=== PATIENT | female | born 1940 | race Caucasian/White ===

== ENCOUNTER 2017-08-26 11:49 | Inpatient (IN) ==
[2017-08-26] MEDS ORDERED: ONDANSETRON 4 MG/2 ML VIAL IV PRN (11:53)
[2017-08-26] MEDS: ALBUTEROL/IPRATROPIUM 3 ML NEB RESP TX SCH ×2 (15:50→20:27)
[2017-08-26] MEDS: ENOXAPARIN 40 MG/0.4 ML SYRINGE SUBCUT SCH (17:32)
[2017-08-26] MEDS: LEVOFLOXACIN INJ 500 MG in PREMIX 1 EACH IV SCH (17:32)
[2017-08-26] MEDS: SODIUM CHLORIDE 0.9% 1,000 ML IV SCH ×2 (17:33→21:25)
[2017-08-26] MEDS: methylPREDNISolone SOD SUC 125 MG/2 ML VIAL IV SCH ×3 (17:33→23:43)
[2017-08-26] MEDS: DOCUSATE SODIUM 100 MG CAPSULE PO SCH (21:25)
[2017-08-27] MEDS: ALBUTEROL/IPRATROPIUM 3 ML NEB RESP TX SCH ×4 (02:13→19:55)
[2017-08-27] MEDS: ACETAMINOPHEN 325 MG TABLET PO PRN (03:00)
[2017-08-27] MEDS: methylPREDNISolone SOD SUC 125 MG/2 ML VIAL IV SCH ×3 (06:03→21:02)
[2017-08-27 06:42] LABS: Hematocrit 30.8 VOL% (35.7-47.0); Hemoglobin 11.1 GM/DL (12.0-16.0); Immature Granulocytes % 1.6 %; Immature Granulocytes Absolute 0.03 #; Lymphocytes # 0.3 10*3/uL (1.4-4.0); Lymphocytes % 16.8 % (21.3-54.2); Mean Corpuscular Hemoglobin 32 PG (27-34); Mean Corpuscular Volume 87.7 FL (87-102); Mean Platelet Volume 9.1 FL (9.6-12.0); Monocytes % 2.1 % (1.7-12.7); Neutrophils # 1.5 10*3/uL (1.4-7.4); Neutrophils % 79.5 % (38.7-73.9); Platelet Count 281 T/CUMM (130-400); Red Blood Count 3.51 MC/CUMM (3.8-5.5); White Blood Count 1.9 T/CUMM (4-12)
[2017-08-27 07:20] LABS: Calcium 8.6 MG/DL (8.5-10.1); Osmolality,Calculated 257.2 MOS/KG (273-304); Potassium 3.8 MMOL/L (3.5-5.1)
[2017-08-27 07:34] LABS: Burr Cells Slight; Giant Platelets Few; Hypochromasia 1+; Ovalocytes Slight; Platelet Estimate Adequate
[2017-08-27] MEDS: SODIUM CHLORIDE 0.9% 1,000 ML IV SCH (07:59)
[2017-08-27] MEDS ORDERED: PANTOPRAZOLE 40 MG TABLET PO SCH (09:00)
[2017-08-27] MEDS ORDERED: ALBUTEROL 2.5 MG/3 ML NEB RESP TX PRN (10:28)
[2017-08-27 10:30] LABS: Folate 7.4 NG/ML (5.4-24.0)
[2017-08-27] MEDS: DOCUSATE SODIUM 100 MG CAPSULE PO SCH ×2 (10:58→21:03)
[2017-08-27] MEDS: POTASSIUM CHLORIDE 20 MEQ TABLET PO SCH (14:14)
[2017-08-27] MEDS: traMADol 50 MG TABLET PO PRN (21:00)
[2017-08-27] MEDS: LEVOFLOXACIN INJ 500 MG in PREMIX 1 EACH IV SCH (21:00)
[2017-08-27] MEDS: PREGABALIN 100 MG CAPSULE PO SCH (21:03)
[2017-08-27] MEDS: LISINOPRIL 10 MG TABLET PO SCH (21:03)
[2017-08-27] MEDS: MEMANTINE 10 MG TABLET PO SCH (21:03)
[2017-08-27] MEDS: DONEPEZIL 10 MG TABLET PO SCH (21:03)
[2017-08-27] MEDS: ENOXAPARIN 40 MG/0.4 ML SYRINGE SUBCUT SCH (21:03)
[2017-08-27] MEDS: OXcarbazepine 300 MG TABLET PO SCH (21:04)
[2017-08-27] MEDS: PRAVASTATIN 20 MG TABLET PO SCH (21:04)
[2017-08-27] MEDS: PANTOPRAZOLE 40 MG TABLET PO SCH (21:14)
[2017-08-28] MEDS: ALBUTEROL/IPRATROPIUM 3 ML NEB RESP TX SCH ×4 (00:34→19:25)
[2017-08-28] MEDS: SODIUM CHLORIDE 0.9% 1,000 ML IV SCH ×3 (01:52→21:02)
[2017-08-28] MEDS: ACETAMINOPHEN 325 MG TABLET PO PRN (03:20)
[2017-08-28] MEDS: methylPREDNISolone SOD SUC 125 MG/2 ML VIAL IV SCH (05:53)
[2017-08-28 06:35] LABS: Calcium 8.3 MG/DL (8.5-10.1); Osmolality,Calculated 263.7 MOS/KG (273-304); Potassium 3.6 MMOL/L (3.5-5.1)
[2017-08-28 07:32] LABS: Hematocrit 27.2 VOL% (35.7-47.0); Hemoglobin 9.6 GM/DL (12.0-16.0); Immature Granulocytes % 1.1 %; Immature Granulocytes Absolute 0.11 #; Lymphocytes # 0.8 10*3/uL (1.4-4.0); Lymphocytes % 8.1 % (21.3-54.2); Mean Corpuscular HGB Conc 35.3 GM/DL (32-36); Mean Corpuscular Hemoglobin 32 PG (27-34); Mean Corpuscular Volume 89.5 FL (87-102); Mean Platelet Volume 9.1 FL (9.6-12.0); Monocytes # 0.8 10*3/uL (0.11-0.8); Monocytes % 7.7 % (1.7-12.7); Neutrophils # 8.4 10*3/uL (1.4-7.4); Neutrophils % 83.1 % (38.7-73.9); Platelet Count 255 T/CUMM (130-400); Red Blood Count 3.04 MC/CUMM (3.8-5.5); Red Cell Distribution Width 13.5 % (9.3-17.3)
[2017-08-28 07:36] LABS: White Blood Count 10.1 T/CUMM (4-12)
[2017-08-28] MEDS ORDERED: NON-FORMULARY MEDICATION (Tiotropium Inhalation 18 MCG) INH SCH (09:00)
[2017-08-28] MEDS: TOLTERODINE LA 4 MG CAPSULE PO SCH (10:14)
[2017-08-28] MEDS: MEMANTINE 10 MG TABLET PO SCH ×2 (10:15→21:02)
[2017-08-28] MEDS: PREGABALIN 100 MG CAPSULE PO SCH ×2 (10:16→21:02)
[2017-08-28] MEDS: PANTOPRAZOLE 40 MG TABLET PO SCH ×2 (10:16→21:02)
[2017-08-28] MEDS: OXcarbazepine 300 MG TABLET PO SCH ×2 (10:17→21:03)
[2017-08-28] MEDS: POTASSIUM CHLORIDE 20 MEQ TABLET PO SCH (13:02)
[2017-08-28] MEDS: DOCUSATE SODIUM 100 MG CAPSULE PO SCH ×2 (13:04→21:02)
[2017-08-28] MEDS: RALOXIFENE 60 MG TABLET PO SCH (13:04)
[2017-08-28] MEDS: methylPREDNISolone SOD SUC 40 MG/1 ML VIAL IV SCH (18:01)
[2017-08-28] MEDS: DONEPEZIL 10 MG TABLET PO SCH (21:02)
[2017-08-28] MEDS: PRAVASTATIN 20 MG TABLET PO SCH (21:02)
[2017-08-28] MEDS: LISINOPRIL 10 MG TABLET PO SCH (21:02)
[2017-08-28] MEDS: CYANOCOBALAMIN 500 MCG TABLET PO SCH (21:03)
[2017-08-28] MEDS: ENOXAPARIN 40 MG/0.4 ML SYRINGE SUBCUT SCH (21:03)
[2017-08-28] MEDS: LEVOFLOXACIN INJ 500 MG in PREMIX 1 EACH IV SCH (21:12)
[2017-08-29] MEDS: ALBUTEROL/IPRATROPIUM 3 ML NEB RESP TX SCH ×2 (00:33→11:02)
[2017-08-29] MEDS: traMADol 50 MG TABLET PO PRN ×2 (00:51→09:09)
[2017-08-29] MEDS: SODIUM CHLORIDE 0.9% 1,000 ML IV SCH ×2 (04:58→06:30)
[2017-08-29 05:58] LABS: Basophils % 0.1 % (0.0-0.8); Hematocrit 28.5 VOL% (35.7-47.0); Hemoglobin 9.7 GM/DL (12.0-16.0); Immature Granulocytes % 1.2 %; Immature Granulocytes Absolute 0.12 #; Lymphocytes # 1.8 10*3/uL (1.4-4.0); Lymphocytes % 17.8 % (21.3-54.2); Mean Corpuscular Hemoglobin 31 PG (27-34); Mean Corpuscular Volume 91.1 FL (87-102); Mean Platelet Volume 9.1 FL (9.6-12.0); Monocytes % 10.2 % (1.7-12.7); Neutrophils # 7.2 10*3/uL (1.4-7.4); Neutrophils % 70.7 % (38.7-73.9); Platelet Count 245 T/CUMM (130-400); Red Blood Count 3.13 MC/CUMM (3.8-5.5); Red Cell Distribution Width 13.7 % (9.3-17.3); White Blood Count 10.2 T/CUMM (4-12)
[2017-08-29 06:23] LABS: Calcium 8.4 MG/DL (8.5-10.1); Osmolality,Calculated 267.1 MOS/KG (273-304); Potassium 3.8 MMOL/L (3.5-5.1)
[2017-08-29] MEDS: methylPREDNISolone SOD SUC 40 MG/1 ML VIAL IV SCH (06:30)
[2017-08-29 07:38] VITALS: BP 128/28
[2017-08-29] MEDS: CYANOCOBALAMIN 500 MCG TABLET PO SCH (09:08)
[2017-08-29] MEDS: TOLTERODINE LA 4 MG CAPSULE PO SCH (09:09)
[2017-08-29] MEDS: MEMANTINE 10 MG TABLET PO SCH (09:09)
[2017-08-29] MEDS: PREGABALIN 100 MG CAPSULE PO SCH (09:09)
[2017-08-29] MEDS: OXcarbazepine 300 MG TABLET PO SCH (09:09)
[2017-08-29] MEDS: PANTOPRAZOLE 40 MG TABLET PO SCH (09:09)
[2017-08-29] MEDS: RALOXIFENE 60 MG TABLET PO SCH (09:11)
[2017-08-29] MEDS: DOCUSATE SODIUM 100 MG CAPSULE PO SCH (09:12)
== END 2017-08-29 11:56 | disposition home or self-care (01) | DRG 191 ==
LOC: N.5E 15:04
PROVIDERS: ADMIT Internal Medicine; ATTEND Internal Medicine

== ENCOUNTER 2017-11-02 10:09 | Inpatient (IN) ==
[2017-11-02] MEDS ORDERED: SODIUM CHLORIDE 0.9% 1,000 ML IV STA (10:36)
[2017-11-02] MEDS ORDERED: fentaNYL 100 MCG/2 ML VIAL IV STA (10:36)
[2017-11-02] MEDS ORDERED: ONDANSETRON 4 MG/2 ML VIAL IV STA (10:36)
[2017-11-02 11:18] LABS: Basophils % 0.1 % (0.0-0.8); Hematocrit 35.4 VOL% (35.7-47.0); Hemoglobin 12.5 GM/DL (12.0-16.0); Immature Granulocytes % 0.8 %; Immature Granulocytes Absolute 0.13 #; Lymphocytes # 0.8 10*3/uL (1.4-4.0); Lymphocytes % 4.8 % (21.3-54.2); Mean Corpuscular HGB Conc 35.3 GM/DL (32-36); Mean Corpuscular Hemoglobin 32 PG (27-34); Mean Platelet Volume 8.8 FL (9.6-12.0); Monocytes # 1.6 10*3/uL (0.11-0.8); Monocytes % 9.2 % (1.7-12.7); Neutrophils # 14.4 10*3/uL (1.4-7.4); Neutrophils % 85.1 % (38.7-73.9); Platelet Count 356 T/CUMM (130-400); Red Blood Count 3.89 MC/CUMM (3.8-5.5); Red Cell Distribution Width 13.7 % (9.3-17.3); White Blood Count 16.9 T/CUMM (4-12)
[2017-11-02] MEDS ORDERED: ONDANSETRON 4 MG/2 ML VIAL ONE (11:19)
[2017-11-02] MEDS ORDERED: fentaNYL 100 MCG/2 ML VIAL ONE (11:20)
[2017-11-02 11:34] LABS: Albumin 3.2 G/DL (3.4-5.0); Bilirubin,Total 0.7 MG/DL (0.2-1.0); Calcium 9.5 MG/DL (8.5-10.1); Lactic Acid 1.6 MMOL/L (0.4-2.0); Osmolality,Calculated 277.7 MOS/KG (273-304); Potassium 2.6 MMOL/L (3.5-5.1); Total Protein 7.9 G/DL (6.4-8.3)
[2017-11-02 11:46] LABS: Acanthocytes Few; Band Neutrophils 1 % (0-10); Burr Cells Few; Lymphocytes 3 % (20-55); Nucleated Red Blood Cells 1 (0-5); Segmented Neutrophils 92 % (50-85); Total Cells Counted 100
[2017-11-02 11:47] LABS: Microcytosis Slight
[2017-11-02 12:08] LABS: Apearance,Urine CLEAR (Clear); Bilirubin,Urine Negative (Negative); Blood, Urine Negative (Negative); Glucose,Urine (UA) Negative (Negative); Hyaline Casts,Urine 1 /LPF (0-3); Ketones,Urine 20 mg/dL (Negative); Mucus,Urine Occasional /LPF (Occasional); Nitrite,Urine Negative (Negative); Protein,Urine 100 MG/DL; RBC,Urine <1 /HPF (0-4); Urine Color Yellow (Yellow); Urine Specific Gravity 1.017 (1.001-1.035); Urine Urobilinogen < 2.0 EU/DL (0.2-1.0); WBC,Urine <1 /HPF (0-6)
[2017-11-02] MEDS ORDERED: SODIUM CHLOR 0.9% KCL 40 MEQ 40 MEQ/1,000 ML BAG IV SCH (12:30)
[2017-11-02] MEDS ORDERED: ALUM/MAG/SIMETH/LIDO VISC 1:1 30 ML BOTTLE PO PRN (14:13)
[2017-11-02] MEDS: SODIUM CHLOR 0.9% KCL 40 MEQ 40 MEQ/1,000 ML BAG IV SCH (15:48)
[2017-11-02] MEDS: FLUCONAZOLE INJ 400 MG in PREMIX 1 EACH IV SCH (15:48)
[2017-11-02] MEDS ORDERED: ALBUTEROL/IPRATROPIUM 3 ML NEB RESP TX PRN (16:16)
[2017-11-02] MEDS ORDERED: ALBUTEROL 2.5 MG/3 ML NEB RESP TX PRN (16:29)
[2017-11-02] MEDS: NYSTATIN 500,000 UNIT/5 ML UDCUP SWISH/SWAL SCH ×2 (17:46→21:18)
[2017-11-02] MEDS: ALBUTEROL/IPRATROPIUM 3 ML NEB RESP TX SCH (20:39)
[2017-11-02] MEDS: OXcarbazepine 300 MG TABLET PO SCH (21:15)
[2017-11-02] MEDS: DOCUSATE SODIUM 100 MG CAPSULE PO SCH (21:17)
[2017-11-02] MEDS: PANTOPRAZOLE 40 MG TABLET PO SCH (21:17)
[2017-11-02] MEDS: PRAVASTATIN 20 MG TABLET PO SCH (21:17)
[2017-11-02] MEDS: MEGESTROL 40 MG TABLET PO SCH (21:18)
[2017-11-02] MEDS: PREGABALIN 100 MG CAPSULE PO SCH (21:18)
[2017-11-02] MEDS: MEMANTINE 5 MG TABLET PO SCH (21:18)
[2017-11-02] MEDS: DONEPEZIL 10 MG TABLET PO SCH (21:18)
[2017-11-03] MEDS: ALBUTEROL/IPRATROPIUM 3 ML NEB RESP TX SCH ×3 (01:57→13:23)
[2017-11-03] MEDS: SODIUM CHLOR 0.9% KCL 40 MEQ 40 MEQ/1,000 ML BAG IV SCH ×3 (04:55→17:55)
[2017-11-03] MEDS: traMADol 50 MG TABLET PO PRN ×2 (04:56→18:13)
[2017-11-03 06:49] LABS: Basophils % 0.2 % (0.0-0.8); Hematocrit 28.7 VOL% (35.7-47.0); Hemoglobin 10.1 GM/DL (12.0-16.0); Immature Granulocytes % 0.5 %; Immature Granulocytes Absolute 0.06 #; Mean Corpuscular HGB Conc 35.2 GM/DL (32-36); Mean Corpuscular Hemoglobin 32 PG (27-34); Mean Platelet Volume 9.4 FL (9.6-12.0); Monocytes # 1.4 10*3/uL (0.11-0.8); Neutrophils # 8.9 10*3/uL (1.4-7.4); Neutrophils % 78.3 % (38.7-73.9); Platelet Count 298 T/CUMM (130-400); Red Blood Count 3.12 MC/CUMM (3.8-5.5); Red Cell Distribution Width 14.1 % (9.3-17.3); White Blood Count 11.4 T/CUMM (4-12)
[2017-11-03 07:22] LABS: Calcium 8.2 MG/DL (8.5-10.1); Osmolality,Calculated 276.5 MOS/KG (273-304); Potassium 2.8 MMOL/L (3.5-5.1)
[2017-11-03] MEDS: DOCUSATE SODIUM 100 MG CAPSULE PO SCH ×2 (08:51→21:33)
[2017-11-03] MEDS: OXcarbazepine 300 MG TABLET PO SCH ×2 (08:51→21:32)
[2017-11-03] MEDS: PANTOPRAZOLE 40 MG TABLET PO SCH ×2 (08:51→21:31)
[2017-11-03] MEDS: NYSTATIN 500,000 UNIT/5 ML UDCUP SWISH/SWAL SCH ×4 (08:51→21:46)
[2017-11-03] MEDS: PREGABALIN 100 MG CAPSULE PO SCH ×2 (08:51→21:32)
[2017-11-03] MEDS: MEMANTINE 5 MG TABLET PO SCH ×2 (08:51→21:31)
[2017-11-03] MEDS: MEGESTROL 40 MG TABLET PO SCH ×2 (08:51→21:32)
[2017-11-03] MEDS: TOLTERODINE LA 4 MG CAPSULE PO SCH (08:56)
[2017-11-03] MEDS: RALOXIFENE 60 MG TABLET PO SCH (08:57)
[2017-11-03] MEDS: CYANOCOBALAMIN 500 MCG TABLET PO SCH (08:57)
[2017-11-03] MEDS ORDERED: PANTOPRAZOLE 40 MG TABLET PO SCH (09:00)
[2017-11-03] MEDS: IPRATROPIUM 500 MCG/2.5 ML NEB RESP TX SCH ×4 (10:44→19:57)
[2017-11-03] MEDS: POTASSIUM CHLORIDE 20 MEQ TABLET PO SCH (11:21)
[2017-11-03] MEDS: FLUCONAZOLE INJ 400 MG in PREMIX 1 EACH IV SCH (15:00)
[2017-11-03] MEDS: PRAVASTATIN 20 MG TABLET PO SCH (21:33)
[2017-11-03] MEDS: DONEPEZIL 10 MG TABLET PO SCH (21:33)
[2017-11-03] MEDS: ACETAMINOPHEN 325 MG TABLET PO PRN (21:46)
[2017-11-04] MEDS: ACETAMINOPHEN 325 MG TABLET PO PRN (05:32)
[2017-11-04] MEDS: SODIUM CHLOR 0.9% KCL 40 MEQ 40 MEQ/1,000 ML BAG IV SCH ×4 (05:33→15:46)
[2017-11-04 06:40] LABS: Basophils # 0.1 10*3/uL (0.0-0.2); Basophils % 0.7 % (0.0-0.8); Eosinophils # 0.4 10*3/uL (0.0-0.87); Eosinophils % 3.5 % (0.00-10.9); Hematocrit 26.9 VOL% (35.7-47.0); Hemoglobin 9.2 GM/DL (12.0-16.0); Immature Granulocytes % 0.8 %; Immature Granulocytes Absolute 0.08 #; Lymphocytes # 1.4 10*3/uL (1.4-4.0); Lymphocytes % 14.5 % (21.3-54.2); Mean Corpuscular HGB Conc 34.2 GM/DL (32-36); Mean Corpuscular Hemoglobin 32 PG (27-34); Mean Corpuscular Volume 93.4 FL (87-102); Mean Platelet Volume 9.4 FL (9.6-12.0); Monocytes # 0.9 10*3/uL (0.11-0.8); Monocytes % 9.4 % (1.7-12.7); Neutrophils # 7.1 10*3/uL (1.4-7.4); Neutrophils % 71.1 % (38.7-73.9); Platelet Count 306 T/CUMM (130-400); Red Blood Count 2.88 MC/CUMM (3.8-5.5); Red Cell Distribution Width 13.9 % (9.3-17.3)
[2017-11-04] MEDS: IPRATROPIUM 500 MCG/2.5 ML NEB RESP TX SCH ×4 (07:19→19:32)
[2017-11-04 07:20] LABS: Osmolality,Calculated 273.5 MOS/KG (273-304); Potassium 3.7 MMOL/L (3.5-5.1)
[2017-11-04] MEDS: MEMANTINE 5 MG TABLET PO SCH ×2 (09:34→20:56)
[2017-11-04] MEDS: TOLTERODINE LA 4 MG CAPSULE PO SCH (09:34)
[2017-11-04] MEDS: CYANOCOBALAMIN 500 MCG TABLET PO SCH (09:34)
[2017-11-04] MEDS: RALOXIFENE 60 MG TABLET PO SCH (09:34)
[2017-11-04] MEDS: PANTOPRAZOLE 40 MG TABLET PO SCH ×2 (09:35→20:57)
[2017-11-04] MEDS: MEGESTROL 40 MG TABLET PO SCH ×2 (09:35→20:57)
[2017-11-04] MEDS: PREGABALIN 100 MG CAPSULE PO SCH ×2 (09:35→21:14)
[2017-11-04] MEDS: NYSTATIN 500,000 UNIT/5 ML UDCUP SWISH/SWAL SCH ×5 (09:36→20:56)
[2017-11-04] MEDS: traMADol 50 MG TABLET PO PRN ×2 (09:36→20:57)
[2017-11-04] MEDS: OXcarbazepine 300 MG TABLET PO SCH ×2 (09:36→20:56)
[2017-11-04] MEDS: DOCUSATE SODIUM 100 MG CAPSULE PO SCH ×2 (09:51→20:56)
[2017-11-04] MEDS: POTASSIUM CHLORIDE 20 MEQ TABLET PO SCH (11:57)
[2017-11-04] MEDS: FLUCONAZOLE INJ 200 MG in PREMIX 1 EACH IV SCH (15:45)
[2017-11-04] MEDS: PRAVASTATIN 20 MG TABLET PO SCH (20:57)
[2017-11-04] MEDS: DONEPEZIL 10 MG TABLET PO SCH (21:14)
[2017-11-05] MEDS: SODIUM CHLOR 0.9% KCL 40 MEQ 40 MEQ/1,000 ML BAG IV SCH ×2 (06:24→19:56)
[2017-11-05 06:55] LABS: Basophils # 0.1 10*3/uL (0.0-0.2); Eosinophils # 0.5 10*3/uL (0.0-0.87); Eosinophils % 5.5 % (0.00-10.9); Hematocrit 30.5 VOL% (35.7-47.0); Hemoglobin 10.5 GM/DL (12.0-16.0); Immature Granulocytes % 0.6 %; Immature Granulocytes Absolute 0.05 #; Lymphocytes # 1.1 10*3/uL (1.4-4.0); Lymphocytes % 12.4 % (21.3-54.2); Mean Corpuscular HGB Conc 34.4 GM/DL (32-36); Mean Corpuscular Hemoglobin 32 PG (27-34); Mean Corpuscular Volume 91.9 FL (87-102); Monocytes # 0.9 10*3/uL (0.11-0.8); Monocytes % 9.9 % (1.7-12.7); Neutrophils # 6.2 10*3/uL (1.4-7.4); Neutrophils % 70.6 % (38.7-73.9); Platelet Count 355 T/CUMM (130-400); Red Blood Count 3.32 MC/CUMM (3.8-5.5); Red Cell Distribution Width 14.3 % (9.3-17.3); White Blood Count 8.8 T/CUMM (4-12)
[2017-11-05 07:23] LABS: Calcium 8.6 MG/DL (8.5-10.1); Osmolality,Calculated 260.4 MOS/KG (273-304); Potassium 4.6 MMOL/L (3.5-5.1)
[2017-11-05] MEDS: IPRATROPIUM 500 MCG/2.5 ML NEB RESP TX SCH ×4 (07:36→19:04)
[2017-11-05] MEDS: NYSTATIN 500,000 UNIT/5 ML UDCUP SWISH/SWAL SCH ×4 (08:38→19:59)
[2017-11-05] MEDS: MEMANTINE 5 MG TABLET PO SCH ×2 (08:38→20:00)
[2017-11-05] MEDS: CYANOCOBALAMIN 500 MCG TABLET PO SCH (08:38)
[2017-11-05] MEDS: PREGABALIN 100 MG CAPSULE PO SCH ×2 (08:39→20:00)
[2017-11-05] MEDS: DOCUSATE SODIUM 100 MG CAPSULE PO SCH ×2 (08:39→20:00)
[2017-11-05] MEDS: TOLTERODINE LA 4 MG CAPSULE PO SCH (08:39)
[2017-11-05] MEDS: MEGESTROL 40 MG TABLET PO SCH ×2 (08:39→19:59)
[2017-11-05] MEDS: PANTOPRAZOLE 40 MG TABLET PO SCH ×2 (08:40→19:59)
[2017-11-05] MEDS: RALOXIFENE 60 MG TABLET PO SCH (08:40)
[2017-11-05] MEDS: OXcarbazepine 300 MG TABLET PO SCH ×2 (08:40→20:00)
[2017-11-05] MEDS: POTASSIUM CHLORIDE 20 MEQ TABLET PO SCH (12:30)
[2017-11-05] MEDS: POTASSIUM CHLORIDE 8 MEQ CAPSULE PO SCH (12:37)
[2017-11-05] MEDS: ONDANSETRON 4 MG/2 ML VIAL IV PRN (15:12)
[2017-11-05] MEDS: traMADol 50 MG TABLET PO PRN (15:16)
[2017-11-05] MEDS: FLUCONAZOLE INJ 200 MG in PREMIX 1 EACH IV SCH (16:06)
[2017-11-05] MEDS: ACETAMINOPHEN 325 MG TABLET PO PRN (17:57)
[2017-11-05] MEDS: DONEPEZIL 10 MG TABLET PO SCH (19:59)
[2017-11-05] MEDS: PRAVASTATIN 20 MG TABLET PO SCH (20:00)
[2017-11-06] MEDS: IPRATROPIUM 500 MCG/2.5 ML NEB RESP TX SCH ×4 (07:18→20:29)
[2017-11-06] MEDS: OXcarbazepine 300 MG TABLET PO SCH ×2 (08:57→21:08)
[2017-11-06] MEDS: CYANOCOBALAMIN 500 MCG TABLET PO SCH (08:58)
[2017-11-06] MEDS: PREGABALIN 100 MG CAPSULE PO SCH ×2 (08:58→21:08)
[2017-11-06] MEDS: MEGESTROL 40 MG TABLET PO SCH ×2 (08:58→21:08)
[2017-11-06] MEDS: TOLTERODINE LA 4 MG CAPSULE PO SCH (08:58)
[2017-11-06] MEDS: NYSTATIN 500,000 UNIT/5 ML UDCUP SWISH/SWAL SCH ×4 (08:58→21:07)
[2017-11-06] MEDS: MEMANTINE 5 MG TABLET PO SCH ×2 (08:58→21:07)
[2017-11-06] MEDS: RALOXIFENE 60 MG TABLET PO SCH (08:58)
[2017-11-06] MEDS: DOCUSATE SODIUM 100 MG CAPSULE PO SCH ×2 (08:58→21:08)
[2017-11-06] MEDS: PANTOPRAZOLE 40 MG TABLET PO SCH ×2 (08:58→21:08)
[2017-11-06] MEDS: SODIUM CHLOR 0.9% KCL 40 MEQ 40 MEQ/1,000 ML BAG IV SCH (11:27)
[2017-11-06] MEDS: POTASSIUM CHLORIDE 8 MEQ CAPSULE PO SCH (14:26)
[2017-11-06] MEDS: FLUCONAZOLE INJ 200 MG in PREMIX 1 EACH IV SCH (15:18)
[2017-11-06] MEDS: traMADol 50 MG TABLET PO PRN (21:07)
[2017-11-06] MEDS: PRAVASTATIN 20 MG TABLET PO SCH (21:07)
[2017-11-06] MEDS: DONEPEZIL 10 MG TABLET PO SCH (21:08)
[2017-11-06] MEDS: ONDANSETRON 4 MG/2 ML VIAL IV PRN (21:13)
[2017-11-07 07:11] LABS: Calcium 8.4 MG/DL (8.5-10.1); Osmolality,Calculated 254.9 MOS/KG (273-304); Potassium 4.1 MMOL/L (3.5-5.1)
[2017-11-07] MEDS: IPRATROPIUM 500 MCG/2.5 ML NEB RESP TX SCH ×2 (07:12→10:49)
[2017-11-07 07:41] LABS: Basophils # 0.1 10*3/uL (0.0-0.2); Basophils % 0.7 % (0.0-0.8); Eosinophils # 0.3 10*3/uL (0.0-0.87); Eosinophils % 3.5 % (0.00-10.9); Hematocrit 30.4 VOL% (35.7-47.0); Hemoglobin 10.5 GM/DL (12.0-16.0); Immature Granulocytes Absolute 0.14 #; Lymphocytes # 1.1 10*3/uL (1.4-4.0); Lymphocytes % 15.6 % (21.3-54.2); Mean Corpuscular HGB Conc 34.5 GM/DL (32-36); Mean Corpuscular Hemoglobin 32 PG (27-34); Mean Corpuscular Volume 92.4 FL (87-102); Mean Platelet Volume 9.2 FL (9.6-12.0); Monocytes # 1.2 10*3/uL (0.11-0.8); Monocytes % 17.4 % (1.7-12.7); Neutrophils # 4.3 10*3/uL (1.4-7.4); Neutrophils % 60.8 % (38.7-73.9); Platelet Count 357 T/CUMM (130-400); Red Blood Count 3.29 MC/CUMM (3.8-5.5); Red Cell Distribution Width 13.9 % (9.3-17.3); White Blood Count 7.1 T/CUMM (4-12)
[2017-11-07 08:03] LABS: Eosinophils 2 % (0-10); Lymphocytes 17 % (20-55); Segmented Neutrophils 61 % (50-85); Total Cells Counted 100
[2017-11-07 08:04] LABS: Burr Cells Slight; Giant Platelets Few; Hypochromasia 1+; Ovalocytes Slight; Platelet Estimate Adequate
[2017-11-07] MEDS: RALOXIFENE 60 MG TABLET PO SCH (09:02)
[2017-11-07] MEDS: NYSTATIN 500,000 UNIT/5 ML UDCUP SWISH/SWAL SCH (09:02)
[2017-11-07] MEDS: PREGABALIN 100 MG CAPSULE PO SCH (09:02)
[2017-11-07] MEDS: CYANOCOBALAMIN 500 MCG TABLET PO SCH (09:02)
[2017-11-07] MEDS: OXcarbazepine 300 MG TABLET PO SCH (09:02)
[2017-11-07] MEDS: DOCUSATE SODIUM 100 MG CAPSULE PO SCH (09:02)
[2017-11-07] MEDS: TOLTERODINE LA 4 MG CAPSULE PO SCH (09:02)
[2017-11-07] MEDS: MEGESTROL 40 MG TABLET PO SCH (09:02)
[2017-11-07] MEDS: MEMANTINE 5 MG TABLET PO SCH (09:02)
[2017-11-07] MEDS: PANTOPRAZOLE 40 MG TABLET PO SCH (09:03)
[2017-11-07] MEDS: ACETAMINOPHEN 325 MG TABLET PO PRN (11:14)
[2017-11-07 12:08] VITALS: BP 120/72
== END 2017-11-07 12:56 | DRG 640 ==
LOC: N.ED 10:09 → N.EDINP 12:14 → N.5E 14:13
PROVIDERS: ADMIT Internal Medicine; ATTEND Internal Medicine